=== PATIENT | female | born 1995 | race Hispanic/Latino ===

== ENCOUNTER 2017-06-19 01:57 | Day surgery (SDC) | payer OTHER ==
[2017-06-19 02:31] VITALS: BP 113/66; TEMP 98.2; BMI 33.3
--- NOTE | 2017-06-19 03:02 | PDOC.LDHP ---
Labor and Delivery H&P Chief complaint: contractions HPI: 22yo at 39w2d by LMP presents with 2 hour history of contractions. She notes the contractions were not painful, but did feel like a pressure. She denies any loss of fluid or any bloody discharge. She does admit to feeling contractions. She has no other complaints at this time. Current gestational age (weeks): 39 (39w2d) Due date: 06/24/17 Dating criteria: last menstrual period Grav: 3 Para: 2 OB History Details: Previous for arrest of labor Successful in second Current complications: none Abnormal US findings: No Current medications: none Previous surgical history: low tranverse CS Social history: none - Physical Exam Vital signs reviewed and normal: yes General: NAD, resting Heart: RRR Lungs: CTAB Abdomen: gravid Extremeties: no edema FHT: category 1 [place] contractions every: 2-3 minutes - Vaginal Exam cm dilated: 1 Effacement: 0% Station: -3 - OB Labs Blood type: O RH: positive Antibody Screen: negative HIV: negative RPR: negative HEPSAg: negative 1 hour GCT: negative GBS: negative Urine drug screen: not done Rubella: immune - Assessment 1. Labor check, not in labor. -Patient can be discharged home with follow up at the Clinic and instructions of when to return to L&D if labor progresses. -Labor precautions were discussed at length and patient expressed understanding 2. Previous -Will plan for TOLAC - Plan Plan: observation in L&D <Ghanshyam Valle - Last Filed: 06/19/17 03:00> <Jeremy Fagan - Last Filed: 06/19/17 10:08> Allergies/Adverse Reactions: Allergies Allergy/AdvReac Type Severity Reaction Status Date / Time No Known Allergies Allergy Verified 06/19/17 02:21 Attending Addendum - Attending Addendum I personally evaluated the patient and discussed the management with Dr. Sheriff. The H&P is repeated by me. I agree with the History, Examination, Assessment and Plan documented above with any addition or exceptions noted below. <Jeremy Fagan - Last Filed: 06/19/17 10:08>
== END 2017-06-19 03:41 | disposition home or self-care (01) ==
LOC: L&D/OP 01:57
PROVIDERS: ATTEND Family Medicine
DX: O47.1 False labor at or after 37 completed weeks of gestation (principal); Z3A.39 39 weeks gestation of pregnancy; Z98.890 Other specified postprocedural states

== ENCOUNTER 2017-06-30 22:31 | Inpatient (IN) | payer OTHER ==
[2017-06-30] MEDS ORDERED: Acetaminophen 500 MG TAB PO PRN (22:49)
[2017-06-30] MEDS ORDERED: Ondansetron HCl/PF 4 MG/2 ML Vial IVP PRN (22:49)
[2017-06-30] MEDS ORDERED: Promethazine HCl 25 MG/ML VIAL IM PRN (22:49)
[2017-06-30 23:22] VITALS: BMI 34.0
--- NOTE | 2017-06-30 23:45 | PDOC.LDHP ---
Labor and Delivery H&P Chief complaint: scheduled induction HPI: Patient is a 22 yo at 40.6 by LMP/11.6 sono presents for IOL for post- dates. Patient had csx in 2013 for breech presentation then a successful in 2014. Patients has been uneventful. No PMH. No significant Fhx. Current gestational age (weeks): 40 (40.6) Due date: 06/24/17 Dating criteria: last menstrual period, first trimester ultrasound Grav: 3 Para: 2 OB History Details: 2013 Csx- breech presentation 2015 Term Current complications: none Abnormal US findings: Yes (borderline polyhydramnios on 05/04/17 sono) Past Medical History: None Current medications: none Previous surgical history: low tranverse CS Social history: none - Physical Exam Vital signs reviewed and normal: yes General: NAD Heart: RRR Lungs: CTAB Abdomen: gravid Extremeties: trace edema FHT: category 2, variable decelerations [place] contractions every: inconsistent - Vaginal Exam cm dilated: 2 Effacement: 75% Station: -2 - OB Labs Blood type: O RH: positive Antibody Screen: negative HIV: negative RPR: negative HEPSAg: negative 1 hour GCT: negative GBS: negative Rubella: immune - Assessment L&D Assessment: elective induction at term 22 yo at 40.6 by LMP/11.6 sono here for post-dates /TOLAC IOL. sIUP: maternal labs wnl OB Hx: Csx for breech presentation, successful 2014 Maternal Hx: no PMH Admit to L&D for IOL with [place] balloon. Routine labor care with continuous monitoring. - Plan Plan: admit to L&D, labor augmentation if indicated, informed consent obtained, anesthesia consult for pain management <Radha Pond - Last Filed: 06/30/17 23:35> <Triston Franz - Last Filed: 07/01/17 11:16> Allergies/Adverse Reactions: Allergies Allergy/AdvReac Type Severity Reaction Status Date / Time No Known Allergies Allergy Verified 06/19/17 02:21 Attending Addendum - Attending Addendum I reviewed the case and discussed the management of labor induction with Dr. Pond. I agree with the History, Examination, Assessment and Plan documented above with any addition or exceptions noted below. <Triston Franz - Last Filed: 07/01/17 11:16>
[2017-06-30] MEDS: Lactated Ringer's 1,000 ML IV SCH (23:58)
[2017-07-01 00:18] LABS: Mean Platelet Volume 8.1 fL (7.4-10.4); Red Blood Cell (RBC) Count 4.12 mill/uL (4.20-5.40); White Blood Cell (WBC) Count 11.5 thou/uL (4.8-10.8)
[2017-07-01] MEDS ORDERED: Fentanyl 4 mcg/Marc 0.1% Cadd 100 ML ONE (03:46)
[2017-07-01] MEDS: Lactated Ringer's 1,000 ML IV SCH (04:01)
[2017-07-01] MEDS ORDERED: PHENYLEPHRINE-NS 100 MCG/ML 10 ML SYRINGE ONE (04:37)
[2017-07-01] MEDS ORDERED: Ondansetron HCl/PF 4 MG/2 ML Vial IVP PRN (04:43)
[2017-07-01] MEDS ORDERED: Lactated Ringer's 500 ML IV PRN (04:43)
[2017-07-01] MEDS ORDERED: diphenhydrAMINE 50 MG/ML VIAL IVP PRN (04:43)
[2017-07-01] MEDS ORDERED: Eucerin (Mineral Oil/Petrolatum,White) 30 gm Jar TOP PRN (04:43)
[2017-07-01] MEDS ORDERED: Naloxone HCl 0.4 mg/ml Vial IVP PRN ×2 (04:43)
[2017-07-01] MEDS ORDERED: Acetaminophen 325 MG TAB PO PRN (04:43)
[2017-07-01] MEDS ORDERED: Promethazine HCl 25 MG/ML VIAL IM PRN (04:43)
[2017-07-01] MEDS ORDERED: ePHEDrine/0.9% NaCl/PF SYRINGE 50 mg/10 ml SLOW IVP PRN (04:43)
[2017-07-01] MEDS ORDERED: Communication Order-Pharmacy FS SCH (04:45)
[2017-07-01] MEDS ORDERED: Fentanyl 4mcg/Marcaine 0.1% Cassette 100 ML EPIDURAL SCH (04:45)
[2017-07-01] MEDS ORDERED: LR / Pitocin 40 units/1000 ml 1,000 ML IV PRN (04:47)
[2017-07-01] MEDS ORDERED: Misoprostol 200 MCG TAB PR PRN (04:47)
[2017-07-01] MEDS ORDERED: HYDROcodone/Acetaminophen 5/325 mg Tablet PO PRN ×3 (04:47→13:27)
[2017-07-01] MEDS ORDERED: Ibuprofen 800 MG TAB PO PRN (04:47)
[2017-07-01] MEDS ORDERED: Lidocaine 1% (PF) 30 ML VIAL SC PRN (04:47)
--- NOTE | 2017-07-01 05:44 | PDOC.LDPN ---
Labor & Delivery Progress Note - Subjective Subjective: comfortable - Objective Vital signs reviewed and normal: yes General: NAD Uterine fundus: non tender Dilation: 6 Effacement: 75% Station: -2 FHT: category 1, variability present [place] contractions every: 3 minutes, accels present Other exam findings: membranes intact - Assessment (1) Current Visit: Yes Status: Acute QualifierTitle: Weeks of gestation: 41 weeks Qualified Code(s): Z3A.41 - 41 weeks gestation of Comment: TOLAC. patient had balloon fall out, had increase in pain and contractions and has had an epidural. she has intact membranes. With her having made progress to 6 cm with balloon induction alone, will plan to continue expectant management. (2) Previous delivery, antepartum Code(s): O34.21 - MATERNAL CARE FOR SCAR FROM PREVIOUS * DO NOT USE * Current Visit: No Status: Acute (3) (vaginal after ) Code(s): O34.21 - MATERNAL CARE FOR SCAR FROM PREVIOUS * DO NOT USE * Current Visit: No Status: Acute Comment: Previous hx of Plan: continue plan of care <Rell Flores - Last Filed: 07/01/17 05:42> Attending Addendum - Attending Addendum I reviewed the course of labor and discussed the management with Dr. Pond. I agree with the History, Examination, Assessment and Plan documented above with any addition or exceptions noted below. <Triston Franz - Last Filed: 07/01/17 11:17>
[2017-07-01] MEDS ORDERED: FLU VACC QS2017-18 36 mo. & older 0.5 ML SYRINGE IM ONE (09:00)
--- NOTE | 2017-07-01 09:22 | PDOC.LDPN ---
Labor & Delivery Progress Note - Subjective Subjective: comfortable - Objective Vital signs reviewed and normal: yes Dilation: 7 Effacement: 90% Station: 0 FHT: category 1 AROM: clear fluid - Assessment (1) Previous delivery, antepartum Code(s): O34.21 - MATERNAL CARE FOR SCAR FROM PREVIOUS * DO NOT USE * Current Visit: No Status: Acute Comment: TOLAC prgessing wel into actoive labor. AROM performed. (2) Post-dates Code(s): O48.0 - POST-TERM Current Visit: Yes Status: Acute Comment: Ballon induction successful into active labor.
--- NOTE | 2017-07-01 10:50 | PDOC.OPDEL ---
OB Operative/Delivery Note Delivery Dr/Surgeon: Nestor Bradley, Rosibel, Dr. Fagan precepting Pre-Delivery Diagnosis: other (TOLAC) Procedure/Post Delivery Dx: vaginal delivery after CS Weeks gestation: 41 Anesthesia: epidural - Findings A Sex: male - 1 min: 8 - 5 min: 9 - Additional Findings/Plan Placenta delivered: spontaneous Repaired Obstetrical Laceration: 1st degree (no repair necessary) Estimated blood loss: 150 Compilations/Other Findings: None Post delivery plan: routine recovery Attending Addendum - Attending Addendum -> 3 s/p to viable male apgars 8/9. delivered OA, with nuchal cord x 1. Optimal cord clamping performed. dried, bulb suctioned and placed skin to skin mother. Blood sampled. Placenta delivered via CCT. Small first degree noted, hemostatic and well approximated. EBL 150 cc. No immediate complications.
[2017-07-01] MEDS ORDERED: Milk Of Magnesia 30 ML UDCUP PO PRN (12:59)
[2017-07-01] MEDS ORDERED: Bisacodyl 10 MG SUPP PR PRN (12:59)
--- NOTE | 2017-07-01 13:39 | PDOC.PP ---
Post Progress Note Post Day #: 0 Subjective: Called to bedside by nursing staff who report that pt has been complaining of severe pain since arriving on the unit. She had trouble transferring from chair to bed due to significant uterine tenderness. Pt states that she can barely move due to pain and characterizes it as an 8/10. She did not experience any pain like this following her previous . Pt afebrile, VSS. Vital Signs (12 hours) Temp Pulse Resp 07/01/17 08:05 98.6 F 75 18 Weight Weight 81.647 kg - Physical Examination Deviation from normal: mild distress 2/2 pain Abdominal: lochia (moderate - no clots or brisk bleeding) Deviation from normal: uterine fundus exquisitely tender to light palpation Psychiatric: A&Ox3, normal affect Result Diagrams: 06/30/17 23:58 Additional Labs: Post Labs Blood Type O POSITIVE 06/30/17 23:58 Hep Bs Antigen Non-Reactive S/CO (NonReactive) 06/30/17 23:58 - Assessment/Plan 22 yo G3 now P3 several hours s/p successful : 1) PP uterine tenderness of unknown etiology - appropriate PP lochia and VSS. Will give IV pain medication and obtain initial imaging of the uterus with US. Will continue to closely monitor.
[2017-07-01] MEDS ORDERED: MORPHINE 10 MG/ML SYRINGE SLOW IVP SCH (13:45)
[2017-07-01] MEDS: Ibuprofen 800 MG TAB PO SCH ×2 (13:45→19:59)
[2017-07-01] MEDS: HYDROcodone/Acetaminophen 5/325 mg Tablet PO PRN (13:47)
[2017-07-01] MEDS ORDERED: Adacel (T-DAP) 0.5 ML VIAL IM ONE (14:00)
[2017-07-01] MEDS ORDERED: LR / Pitocin 40 units/1000 ml 1,000 ML ONE (16:05)
--- NOTE | 2017-07-01 16:36 | ULT ---
TRANSABDOMINAL PELVIC ULTRASOUND: 07/01/17 INDICATION: History of recent natural with a history of three and a half years ago. Concern for p ossible uterine rupture or scar dehiscence. TECHNIQUE: Salazar scale, color doppler images were obtained of the pelvis via transabdominal approach. FINDINGS: The uterus measures 18.9 x 9.4 x 11 cm consistent with is post gravid state. There is no overt eviden ce to suggest retained products of conception within the endometrial canal. There is some shadow seen involving the anterior aspect of the lower uterine segment that is slightly limiting image detail wi thin this region. However, no definite drainable fluid collection or gross dehiscence of the uterine wall is evident. IMPRESSION: 1. No gross evidence to suggest uterine rupture or scar dehiscence. 2. No retained products of conception noted. 3. Mild amount of free fluid present which is likely physiologic in nature. 4. Nonvisualization of the ovaries POS: [facility]
--- NOTE | 2017-07-01 16:52 | PDOC.EVN ---
Event Note - Event Note Event Note: Called by residents for patient's abdominal pain. Patient s/p 2 [place]. Doing well. When I entered the room she was chatting and laughing with multiple family members in no obvious discomfort. Says she has some abdominal pain but it isn't really bothering her anymore. Thinks she needs to have a BM. Abdomen is soft, peurperal, without guarding or rigidity or other peritoneal signs. Fundus near umbilicus, but again this is not prominent. +BS and NTTP to stethoscope. Discussed with nurse, and ultrasound reviewed, both personally and formal read. Agree with interpretation. Will ask residents to perform an additional exam in 2-4 hours.
[2017-07-01] MEDS: Ferrous Sulfate 325 MG TAB PO SCH (18:08)
[2017-07-01] MEDS ORDERED: ePHEDrine/0.9% NaCl/PF SYRINGE 50 mg/10 ml ONE (19:47)
[2017-07-01] MEDS ORDERED: Bupivacaine 0.25% HCL 30 ML VIAL ONE (19:47)
[2017-07-01] MEDS: Docusate (Surfak) 240 MG CAP PO SCH ×2 (19:59→22:10)
[2017-07-02 05:05] LABS: Hematocrit 35.7 % (36.0-47.0); Mean Platelet Volume 8.1 fL (7.4-10.4); Red Blood Cell (RBC) Count 3.77 mill/uL (4.20-5.40); White Blood Cell (WBC) Count 14.4 thou/uL (4.8-10.8)
[2017-07-02] MEDS: Ibuprofen 800 MG TAB PO SCH ×3 (05:57→21:41)
[2017-07-02] MEDS: Ferrous Sulfate 325 MG TAB PO SCH ×2 (07:06→15:42)
[2017-07-02] MEDS: Docusate (Surfak) 240 MG CAP PO SCH ×2 (07:38→20:00)
--- NOTE | 2017-07-02 10:10 | PDOC.PP ---
Post Progress Note Post Day #: 1 Subjective: Pt reports having abdominal pain. States it being dull and radiates up to her ribs. Has gotten up and walked around but had some pain. Has urinated and passing gas fine. Denies any fever or chills. Pt was asking for wheelchair if she were to go home because having a hard time moving around with the pain. Denies any other concerns or problems at this time. PO intake tolerated: yes Flatus: yes Ambulation: yes (Pain with walking in abdormen) Vital Signs (12 hours) Temp Pulse Resp BP 07/02/17 03:20 98.3 F 89 18 101/62 07/02/17 00:00 97.6 F 70 18 93/55 L Weight Weight 81.647 kg - Physical Examination General: NAD Cardiovascular: no m/r/g, RRR Respiratory: clear to auscultation bilaterally Abdominal: + bowel sounds, lochia, no distention Deviation from normal: Mildly TTP in all 4 quadrants of the abdomen Fundus firm & at: Fundus firm Extremities: negative homans (B) Skin: no rash Neurological: no gross focal deficits Psychiatric: A&Ox3, normal affect Result Diagrams: 07/02/17 04:27 Additional Labs: Post Labs Blood Type O POSITIVE 06/30/17 23:58 Hep Bs Antigen Non-Reactive S/CO (NonReactive) 06/30/17 23:58 (1) Normal spontaneous vaginal delivery Code(s): O80 - ENCOUNTER FOR FULL-TERM UNCOMPLICATED DELIVERY Status: Acute Comment: 22 yo deliverd viable TAGA male at 41 weeks via . GBS negative. (2) (vaginal after ) Code(s): O34.21 - MATERNAL CARE FOR SCAR FROM PREVIOUS * DO NOT USE * Status: Acute Comment: Previous hx of - Assessment/Plan 22 yo Delivered viable TAGA male @ 41 weeks. This was her 2nd . -Pelvie U/S performed yesterday due to pain to check for rupture- Negative did not show any scar abnormality and normal amount of free fluid in the pelvis. -Pt still reporting pain this morning. Having trouble moving around with pain. Getting Golden and Motrin. Helping with pain. Will likely keep her here today and monitor pain and see how she does getting up and moving around. Pt says she will try again today and if feeling better may let us know. 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 Pain likely related to 2nd and post op pain and irritation of the scar. -Vital signs stable. Will continue to monitor. -Minimal blood loss. No concern for rupture at this time. -Routine Post care <Ceferino Robertson - Last Filed: 07/02/17 10:13> Vital Signs (12 hours) Temp Pulse Resp BP Pulse Ox 07/02/17 07:30 98.2 F 99 18 106/57 L 99 07/02/17 03:20 98.3 F 89 18 101/62 07/02/17 00:00 97.6 F 70 18 93/55 L Weight Weight 81.647 kg Result Diagrams: 07/02/17 04:27 Additional Labs: Post Labs Blood Type O POSITIVE 06/30/17 23:58 Hep Bs Antigen Non-Reactive S/CO (NonReactive) 06/30/17 23:58 <Ron Gleason - Last Filed: 07/02/17 10:41> Attending Addendum - Attending Addendum I personally evaluated the patient and discussed the management with Dr. Robertson. I agree with and repeated the History, Examination, Assessment and Plan documented above with any addition or exceptions noted below. Doing well this AM, now saying she would like to go home and not really complaining of abdominal pain on my rounds. Bs+, NTTP, fundus firm. No guarding/rigidity. Tolerates baby on her abdomen just fine. A/P: Low suspicion for rupture with benign abdomen, vitals, and labs. Pubic symph NTTP. Will ambulate and she may go today if her pain is controlled or tomorrow per patient. Proctored by Dr. Fagan. <Ron Gleason - Last Filed: 07/02/17 10:41>
[2017-07-02] MEDS: HYDROcodone/Acetaminophen 5/325 mg Tablet PO PRN ×2 (13:50→19:59)
[2017-07-02 20:28] VITALS: BP 110/68; TEMP 98.3
== END 2017-07-02 22:30 | disposition home or self-care (01) | DRG 775 ==
LOC: L&D/OP 22:31 → L&D 22:31 → EDSTATUS 23:15 → 3SW 07-01 12:47
PROVIDERS: ADMIT Family Medicine; ATTEND Family Medicine
PROC: 10E0XZZ Delivery of Products of Conception, External Approach (ICD-10-PCS; principal; 2017-07-01)
PROC: 0U7C7ZZ Dilation of Cervix, Via Natural or Artificial Opening (ICD-10-PCS; 2017-07-01)
PROC: 10907ZC Drainage of Amniotic Fluid, Therapeutic from Products of Conception, Via Natural or Artificial Opening (ICD-10-PCS; 2017-07-01)
DX: O48.0 Post-term pregnancy (principal); O34.211 Maternal care for low transverse scar from previous cesarean delivery; O69.81X0 Labor and delivery complicated by cord around neck, without compression, not applicable or unspecified; O70.0 First degree perineal laceration during delivery; Z37.0 Single live birth; Z3A.40 40 weeks gestation of pregnancy
CPT/HCPCS: 36415; 76815; 76856; 85027; 86780; 86850; 86900; 86901; 87340; 90471; 90682; 90715; C1726; G0008; J2001; J2405; Q2036; S0020

== ENCOUNTER 2019-12-10 14:13 | Outpatient (CLI) | payer OTHER ==
--- NOTE | 2019-12-10 14:49 | ULT ---
ULTRASOUND OBSTETRICAL COMPLETE: DATE: 12/10/2019 HISTORY: 24-year-old female for supervision of other high-risk pregnancies FINDINGS: number: romeo lie: Breech Maternal cervix: 5.5 cm. Closed. Placenta: Posterior Amniotic fluid volume: LEODAN = 13.5 cm heart rate: 143 bpm The following anatomy is visualized, with no evidence of anomalies: Head, cerebellum, lateral ventricles, four-chamber heart, stomach, kidneys, cord insertion, bladder, cervical spine, thoracic spine, lumbar spine, sacrum, nose and lips, upper extremities, lower extremities, and three-vessel cord. biometry: Biparietal diameter (BPD): 5.1 cm 21 w 3 d Head circumference (HC): 18.8 cm 21 w 1 d Abdominal circumference (AC): 15.7 cm 20 w 6 d Femur length (FL): 3.5 cm 21 w 0 d Average ultrasound age (AUA): 21 w 1 d Estimated date of delivery (BRIAN): 04/20/2020 Estimated weight (EFW): 387 g +/- 57 g IMPRESSION: 1) Live 2nd trimester intrauterine gestation. 2) Estimated gestational age of 21 weeks, 1 days 3) breech lie. 4) no anatomic abnormality identified.
== END 2019-12-10 14:14 | disposition home or self-care (01) ==
LOC: BICULT 14:13
PROVIDERS: ATTEND Family Medicine
DX: O09.892 Supervision of other high risk pregnancies, second trimester (principal); O32.1XX0 Maternal care for breech presentation, not applicable or unspecified; Z3A.21 21 weeks gestation of pregnancy
CPT/HCPCS: 76805

== ENCOUNTER 2020-04-19 07:11 | Inpatient (IN) | payer OTHER ==
[2020-04-19 07:48] VITALS: BMI 37.0
[2020-04-19] MEDS ORDERED: Ibuprofen 800 MG TAB PO PRN (08:41)
[2020-04-19] MEDS ORDERED: NS / Oxytocin 40 units/1000ml 1,000 ML IV PRN (08:41)
[2020-04-19] MEDS ORDERED: Promethazine HCl 25 MG/ML VIAL IM PRN ×2 (08:41→13:31)
[2020-04-19] MEDS ORDERED: Lidocaine 1% (PF) 30 ML VIAL SC PRN (08:41)
[2020-04-19] MEDS ORDERED: HYDROcodone/Acetaminophen 5/325 mg Tablet PO PRN ×2 (08:41)
[2020-04-19] MEDS ORDERED: hydrALAZINE 20 MG/ML VIAL SLOW IVP PRN ×2 (08:41→20:17)
[2020-04-19] MEDS ORDERED: Butorphanol Tartrate 1 MG/ML VIAL SLOW IVP PRN (08:41)
[2020-04-19] MEDS ORDERED: Ondansetron PF 4 MG/2 ML Vial IVP PRN ×2 (08:41→13:31)
[2020-04-19] MEDS: Lactated Ringer's 1,000 ML IV SCH ×4 (08:45→16:07)
[2020-04-19] MEDS ORDERED: NS w/ Oxytocin 10 units 500 ML IV SCH (08:45)
--- NOTE | 2020-04-19 09:02 | PDOC.BPN ---
- Brief Progress Note Encounter Date: 04/15/20 Encounter Time: 09:00 Patient seen at bedside and TOLAC IC reviewed with her. We cannot find her GBS result and she is not sure if she was treated in past...defer to any clinical risk factors for coverage
[2020-04-19 09:24] LABS: Hemoglobin 12.6 g/dL (12.0-16.0); Mean Corpuscular HGB CONC 34.6 g/dL (32.0-36.0); Mean Corpuscular Hemoglobin 30.7 pg (27.0-31.0); Mean Corpuscular Volume 88.7 fL (78.0-98.0); Platelet Count 255 thou/uL (130-400); RBC Distribution Width 12.4 % (11.5-14.5); Red Blood Cell (RBC) Count 4.09 mill/uL (4.20-5.40); White Blood Cell (WBC) Count 10.5 thou/uL (4.8-10.8)
--- NOTE | 2020-04-19 09:30 | HP ---
LOCATION: Labor and Delivery. This is a patient of Dr. Lucas, who has asked us to cover. CHIEF COMPLAINT: Possible SROM at 6 this morning. HISTORY OF PRESENT ILLNESS: In brief, this is a 24-year-old, G4, P3, with an EDC of April 20 (tomorrow) with leakage of clear fluid at 0600 this morning. She denies any vaginal bleeding or contractions. She has good movement. She has a history of a previous with 2 subsequent vaginal births after and she desires to try again for vaginal delivery. REVIEW OF SYSTEMS: Complete review of systems was checked and is otherwise negative unless specified in the HPI. There are no COVID exposures noted. PAST MEDICAL HISTORY: Negative. PAST SURGICAL HISTORY: Includes her with her first child. OB HISTORY: First delivery was by and then second and third deliveries were by vaginal births. She states that she has received Pitocin in the past. The patient desires trial of labor after after I did explain to her the option of a versus again trying vaginal for vaginal delivery. SOCIAL HISTORY: Negative for alcohol, tobacco, or drug use. PHYSICAL EXAMINATION: VITAL SIGNS: Her blood pressure is 100/67, pulse is in the 80s, respirations are 18 and nonlabored. heart tones are in the 140s and they are reactive. There are no real contractions on tocodynamometer, but maybe some uterine irritability. GENERAL: She is in no acute distress. ABDOMEN: Soft and nontender with no palpable contractions. CERVIX: Exam reveals 2 cm dilation, 50% effacement, -3 station with grossly ruptured, clear fluid. There are no vulvovaginal lesions. ASSESSMENT: This is a 24-year-old G4, P3, at full-term (39 weeks and 6 days) with PROM, who desires a trial of labor after (TOLAC). I did explain to the patient that there is no guarantee that her vaginal will occur despite her 2 previous successes. I did review with her that her 2 previous vaginal births after is a reassuring finding and makes this trial of labor after highly likely to be successful but without guarantee. I explained to her that the risk of uterine rupture/ complication/maternal complication is the same with every vaginal after . The risk of uterine rupture as 1% or less reviewed. The patient has accepted the information and would like to try a vaginal after and has declined a repeat at this time unless indicated. PLAN: 1. Informed consent done for TOLAC. 2. She has unknown GBS status, so we will try to find out from the lab. If we are not able to find her result, then we will use risk factors per ACOG default pathway. 3. She is not sure if she has had GBS coverage in the past. 4. Pitocin for labor augmentation. This has been reviewed with the patient. We will not administer prostaglandins due to her history. Job ID: [id number]
[2020-04-19 10:05] LABS: Syphilis Antibody Nonreactive (Nonreactive); Syphilis Antibody Index 0.04 S/CO (<1.00 Non-Reactive)
[2020-04-19 10:06] LABS: HBSAg Index 0.16 S/CO (0-0.99); HIV (1/2) Antibody/Antigen Non-Reactive (NonReactive); HIV 1/2 INDEX 0.16 S/CO (<1.00); Hep B Surf Ag Non-Reactive S/CO (NonReactive)
[2020-04-19] MEDS ORDERED: Fentanyl 4 mcg/Bup 0.1% Cadd 100 ML ONE (10:46)
[2020-04-19] MEDS ORDERED: Acetaminophen 325 MG TAB PO PRN (13:31)
[2020-04-19] MEDS ORDERED: Lactated Ringer's 500 ML IV PRN (13:31)
[2020-04-19] MEDS ORDERED: EPHEDRINE 25 MG/5 ML SYRINGE SLOW IVP PRN (13:31)
[2020-04-19] MEDS ORDERED: Naloxone HCl 0.4 mg/ml Vial IVP PRN ×2 (13:31)
[2020-04-19] MEDS ORDERED: diphenhydrAMINE 50 MG/ML VIAL IVP PRN (13:31)
[2020-04-19] MEDS ORDERED: Communication Order-Pharmacy FS SCH (13:45)
[2020-04-19] MEDS ORDERED: Fentanyl 4 mcg/Bupivacaine 0.1% Cassette 100 ML EPIDURAL SCH (13:45)
--- NOTE | 2020-04-19 16:46 | PDOC.LDPN ---
Labor & Delivery Progress Note - Subjective Subjective: comfortable - Objective Vital signs reviewed and normal: yes General: NAD, resting Uterine fundus: non tender SVE: /-2 Dilation: 80 FHT: category 1 Other exam findings: 2-3 minutes IUPC placed: yes (600) Plan: continue plan of care, labor augmentation, pitocin for augmentation -: 24yo ( x 2) - Term in labor. Continue pitocin for augmentation. IUPC placed for better monitoring of contractions. Received fax from PCP office. She is GBS negative. /- @ [id number].
[2020-04-19] MEDS: NS / Oxytocin 40 units/1000ml 1,000 ML IV SCH ×2 (20:15→21:45)
[2020-04-19] MEDS ORDERED: Lanolin Ointment 7 GM TUBE TOP PRN (20:17)
[2020-04-19] MEDS ORDERED: Acetaminophen/Codeine 30-300mg Tablet PO PRN ×2 (20:17)
[2020-04-19] MEDS ORDERED: Bisacodyl 10 MG SUPP PR PRN (20:17)
[2020-04-19] MEDS ORDERED: Milk Of Magnesia 30 ML UDCUP PO PRN (20:17)
--- NOTE | 2020-04-19 20:20 | PDOC.OPDEL ---
OB Operative/Delivery Note Delivery Dr/Surgeon: roberta/eloy Assist: Staff: Roberta Pre-Delivery Diagnosis: active labor Procedure/Post Delivery Dx: vaginal delivery after CS (successful ) Anesthesia: epidural - Findings A Sex: female - 1 min: 7 - 5 min: 9 - Additional Findings/Plan Placenta delivered: spontaneous (at 2018, intact...intact. Baby delivered at 2013 (eloy)) Repaired Obstetrical Laceration: other (small rt periurethral not requiring repair) Estimated blood loss: 150 Compilations/Other Findings: no NC Baby vigorous No gas sent tere lacs counts correct Delivery MD: Eloy under my supervision Post delivery plan: routine recovery
[2020-04-19] MEDS ORDERED: Ibuprofen 800 MG TAB PO SCH (22:00)
[2020-04-19] MEDS: Docusate Calcium (SURFAK) 240 MG CAP PO SCH (23:58)
[2020-04-19] MEDS: Ibuprofen 100 MG/5 ML UDCUP PO SCH (23:58)
--- NOTE | 2020-04-20 07:22 | PDOC.PP ---
Post Progress Note Post Day #: 1 Subjective: Doing well. No concerns. PO intake tolerated: yes Flatus: no Ambulation: yes Vital Signs (12 hours) Temp Pulse Resp BP Pulse Ox 04/20/20 04:00 98.6 F 74 18 93/52 L 97 04/20/20 00:51 97.9 F 72 18 102/67 98 04/19/20 23:50 80 18 110/67 98 04/19/20 22:50 98.7 F 84 18 108/58 L 99 Weight Weight 86.183 kg - Physical Examination General: NAD Cardiovascular: no m/r/g, RRR Respiratory: clear to auscultation bilaterally, non-labored breathing Abdominal: + bowel sounds, lochia, no distention, appropriately TTP Neurological: no gross focal deficits Psychiatric: A&Ox3, normal affect Result Diagrams: 04/19/20 09:05 Additional Labs: Post Labs Hep Bs Antigen Non-Reactive S/CO (NonReactive) 04/19/20 09:05 Blood Type O POSITIVE 04/19/20 09:05 (1) PROM (premature rupture of membranes) Code(s): O42.90 - TAINA ROM, 7TH0 BETW RUPT & ONST LABR, UNSP WEEKS OF GEST Status: Acute (2) (vaginal after ) Code(s): O34.219 - MATERNAL CARE FOR UNSP TYPE SCAR FROM PREVIOUS DEL Status: Acute (3) Status: Acute Qualifiers: Weeks of gestation: 41 weeks Qualified Code(s): Z3A.41 - 41 weeks gestation of Comment: TOLAC. patient had balloon fall out, had increase in pain and contractions and has had an epidural. she has intact membranes. With her having made progress to 6 cm with balloon induction alone, will plan to continue expectant management. (4) Previous delivery, antepartum Code(s): O34.21 - MATERNAL CARE FOR SCAR FROM PREVIOUS * DO NOT USE * Status: Acute Comment: TOLAC prgessing wel into actoive labor. AROM performed. - Assessment/Plan PPD #1 s/p () - Routine pp care - Ibuprofen for pain - QBL 338. - Small abrasions, no lacs. Mother desires 24hour d/c if able. Madeleine PIZARRO PGY2
[2020-04-20] MEDS ORDERED: Varicella virus, LIVE 0.5 ML VIAL SC ONE (09:00)
[2020-04-20] MEDS ORDERED: Measles/Mumps/Rubella 10 MCG/0.5 ML VIAL SC ONE (09:00)
[2020-04-20] MEDS ORDERED: Adacel (T-DAP) 0.5 ML SYRINGE IM ONE (09:00)
[2020-04-20] MEDS: Ibuprofen 100 MG/5 ML UDCUP PO SCH ×2 (09:07→16:07)
[2020-04-20] MEDS: Ferrous Sulfate 325 MG TAB PO SCH ×2 (09:08→18:13)
[2020-04-20] MEDS: Docusate Calcium (SURFAK) 240 MG CAP PO SCH ×2 (09:09→20:33)
[2020-04-20 12:21] LABS: SARS-CoV-2 MS2 Positive; SARS-CoV-2 N Gene Negative; SARS-CoV-2 S Gene Negative; SARS-CoV-2 by NAA Not Detected (NotDetected); SARS-CoV-2 orf1ab Negative
[2020-04-20 22:43] VITALS: BP 103/66; TEMP 98.1
== END 2020-04-20 22:40 | disposition home or self-care (01) | DRG 807 ==
LOC: L&D/OP 07:11 → L&D 08:11 → 3SW 23:12
PROVIDERS: ADMIT Family Medicine; ATTEND Family Medicine
PROC: 10E0XZZ Delivery of Products of Conception, External Approach (ICD-10-PCS; principal; 2020-04-19)
PROC: 0KQM0ZZ Repair Perineum Muscle, Open Approach (ICD-10-PCS; 2020-04-19)
DX: O34.211 Maternal care for low transverse scar from previous cesarean delivery (principal); Z37.0 Single live birth; O71.82 Other specified trauma to perineum and vulva; Z3A.39 39 weeks gestation of pregnancy; Z20.828 Contact with and (suspected) exposure to other viral communicable diseases
CPT/HCPCS: 36415; 51702; 85027; 86780; 86850; 86900; 86901; 87340; 87389; 87635; 99285; J2590; U0003

== ENCOUNTER 2020-11-10 15:58 | Emergency (ER) | payer OTHER ==
[2020-11-10 16:55] LABS: #Eosinphils 0.2 thou/uL (0.0-0.7); #Lymphocytes 3.3 thou/uL (1.20-3.40); #Monocytes 0.5 thou/uL (0.11-0.59); #Neutrophils 3.8 thou/uL (1.40-6.50); %Basophils 0.5 % (0.0-1.0); %Eosinophils 2.2 % (0.0-10.0); %Lymphocytes 42.3 % (21.0-51.0); %Monocytes 6.7 % (0.0-10.0); %Neutrophils 48.4 % (42.0-75.0); Hemoglobin 14.3 g/dL (12.0-16.0); Mean Corpuscular HGB CONC 33.6 g/dL (32.0-36.0); Mean Corpuscular Hemoglobin 29.7 pg (27.0-31.0); Mean Corpuscular Volume 88.6 fL (78.0-98.0); Mean Platelet Volume 7.3 fL (7.4-10.4); Platelet Count 300 thou/uL (130-400); RBC Distribution Width 11.5 % (11.5-14.5); Red Blood Cell (RBC) Count 4.81 mill/uL (4.20-5.40); White Blood Cell (WBC) Count 7.8 thou/uL (4.8-10.8)
[2020-11-10 17:15] LABS: BHCG - Serum Negative (NEGATIVE); Pregs Control Background? CLEAR/WHITE (CLR/WHITE); Pregs Control Bar Appear? YES (CONTROL BAR)
[2020-11-10 17:24] LABS: ALT (SGPT) 11 U/L (8-55); AST (SGOT) 14 U/L (5-34); Albumin 4.4 g/dL (3.5-5.0); Alkaline Phosphatase 77 U/L (40-110); Anion Gap 11 mmol/L (10-20); BUN (Urea Nitrogen) 10 mg/dL (7.0-18.7); Bilirubin, Total 0.3 mg/dL (0.2-1.2); Calc. Creatinine Clearance 0 mL/min (70-130); Calcium 9.3 mg/dL (7.8-10.44); Carbon Dioxide 24 mmol/L (22-29); Chloride 107 mmol/L (98-107); Glucose 96 mg/dL (70-105); Potassium 3.9 mmol/L (3.5-5.1); Protein, Total 7.4 g/dL (6.0-8.3); Sodium 138 mmol/L (136-145)
== END 2020-11-10 20:51 | disposition home or self-care (01) ==
LOC: ERS 15:58
DX: K60.2 Anal fissure, unspecified (principal); K59.00 Constipation, unspecified
CPT/HCPCS: 36415; 80053; 84703; 85025; 86850; 86900; 86901; 99283

== ENCOUNTER 2022-03-02 11:52 | Emergency (ER) | payer OTHER ==
[2022-03-02 12:37] LABS: #Eosinphils 0.1 thou/uL (0.0-0.7); #Lymphocytes 2.4 thou/uL (1.20-3.40); #Monocytes 0.4 thou/uL (0.11-0.59); #Neutrophils 3.2 thou/uL (1.40-6.50); %Basophils 0.4 % (0.0-1.0); %Eosinophils 2.2 % (0.0-10.0); %Lymphocytes 38.6 % (21.0-51.0); %Monocytes 6.8 % (0.0-10.0); %Neutrophils 52.1 % (42.0-75.0); Hemoglobin 14.6 g/dL (12.0-16.0); Mean Corpuscular HGB CONC 34.4 g/dL (32.0-36.0); Mean Corpuscular Hemoglobin 30.7 pg (27.0-31.0); Mean Corpuscular Volume 89.3 fL (78.0-98.0); Mean Platelet Volume 7.8 fL (7.4-10.4); Platelet Count 245 thou/uL (130-400); RBC Distribution Width 11.5 % (11.5-14.5); Red Blood Cell (RBC) Count 4.75 mill/uL (4.20-5.40); White Blood Cell (WBC) Count 6.2 thou/uL (4.8-10.8)
[2022-03-02 12:46] LABS: BHCG - Serum Negative (NEGATIVE); Pregs Control Background? CLEAR/WHITE (CLR/WHITE); Pregs Control Bar Appear? YES (CONTROL BAR)
[2022-03-02 13:01] LABS: ALT (SGPT) 10 U/L (8-55); AST (SGOT) 13 U/L (5-34); Albumin 4.4 g/dL (3.5-5.0); Alkaline Phosphatase 50 U/L (40-110); Anion Gap 11 mmol/L (10-20); BUN (Urea Nitrogen) 8 mg/dL (7.0-18.7); Bilirubin, Total 0.6 mg/dL (0.2-1.2); Calc. Creatinine Clearance 0 mL/min (70-130); Calcium 9.4 mg/dL (7.8-10.44); Carbon Dioxide 24 mmol/L (22-29); Chloride 108 mmol/L (98-107); Estimated GFR 124; Globulin 2.8 g/dL (2.4-3.5); Glucose 85 mg/dL (70-105); Potassium 3.9 mmol/L (3.5-5.1); Protein, Total 7.2 g/dL (6.0-8.3); Sodium 139 mmol/L (136-145)
== END 2022-03-02 15:14 | disposition home or self-care (01) ==
LOC: ERS 11:52
DX: N93.9 Abnormal uterine and vaginal bleeding, unspecified (principal); I10 Essential (primary) hypertension
CPT/HCPCS: 36415; 80053; 84703; 85025; 99284